=== PATIENT | male | born 1960 | race Caucasian/White ===

== ENCOUNTER 2017-12-06 11:01 | Outpatient (CLI) | payer BC ==
--- NOTE | 2017-12-06 12:48 | RAD ---
THREE VIEWS LUMBAR SPINE: Indication: Bilateral leg pain. Comparison: None. FINDINGS: There is grade I anterolisthesis of L5 on S1 that does not appear to be accentuated with flexion but does slightly reduce with extension. There is very slight retrolisthesis of L3 on L4 which does not r educe with flexion and does not appear appreciable accentuated with extension. There is multilevel di sc degenerative and facet osteoarthritic change. No definite pars defects are evident. IMPRESSION: 1. Grade I anterolisthesis of L5 on S1 that slightly reduces with extension and does not appear to wo rsen with flexion. 2. 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 3. Mild retrolisthesis of L3 on L4 with no abnormal translation of motion seen at this level. POS: [facility]
== END 2017-12-06 11:02 | disposition home or self-care (01) ==
LOC: TBSIIMAG 11:01
PROVIDERS: ATTEND Neurological Surgery
DX: M54.5 Low back pain (principal); M51.86 Other intervertebral disc disorders, lumbar region; M43.17 Spondylolisthesis, lumbosacral region
CPT/HCPCS: 72100